=== PATIENT | female | born 1995 | race Caucasian/White ===

== ENCOUNTER 2017-05-24 01:11 | Emergency (ER) | payer OTHER ==
[~2017-05-24] VITALS: Ht 172.7 cm; Wt 83.9 kg
[~2017-05-24 01:11] MED LIST: NITR100C62 PO; PHEN100T82 PO
[2017-05-24 01:30] VITALS: BP 131/78
[2017-05-24] MEDS ORDERED: IBUP-1007 PO (02:17)
[2017-05-24] MEDS ORDERED: CYCL10TA2 PO (02:17)
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
[2017-05-24] MEDS ORDERED: IBUPROFEN 600 MG TABLET. PO ONE (02:30)
[2017-05-24] MEDS ORDERED: CYCLOBENZAPRINE 10 MG TABLET. PO ONE (02:30)
== END 2017-05-24 02:33 | disposition home or self-care (01) ==
LOC: ER 01:11
DX: S39.012A Strain of muscle, fascia and tendon of lower back, initial encounter (principal); V49.88XA Car occupant (driver) (passenger) injured in other specified transport accidents, initial encounter; Y93.89 Activity, other specified; Y99.8 Other external cause status; Y92.488 Other paved roadways as the place of occurrence of the external cause
CPT/HCPCS: 99283

== ENCOUNTER 2017-11-12 02:14 | Emergency (ER) | payer SELFPAY, OTHER ==
[2017-11-12 02:43] LABS: URINE HCG POC HCG NEGATIVE (Negative)
[2017-11-12] MEDS: ONDANSETRON ODT 4 MG TAB.RAPDIS. PO (03:20)
== END 2017-11-12 04:25 | disposition home or self-care (01) ==
LOC: ER 02:14
DX: R11.2 Nausea with vomiting, unspecified (principal)
CPT/HCPCS: 81025; 99283; Q0162

== ENCOUNTER 2017-12-02 00:53 | Emergency (ER) | payer OTHER | END 2017-12-02 02:04 | disposition home or self-care (01) | LOC: ER 00:53 | DX: H10.89 Other conjunctivitis (principal) | CPT/HCPCS: 99283 ==

== ENCOUNTER 2017-12-17 00:54 | Emergency (ER) | payer OTHER ==
[2017-12-17 02:58] LABS: URINE HCG POC HCG POSITIVE (Negative)
[2017-12-17 03:21] LABS: ADD MAN DIFF? NO
[2017-12-17 03:26] LABS: BASO % 0 % (0-3); EOS # 0.1 x10^3/uL (0.0-0.7); EOS % 2 % (0-3); HEMOGLOBIN 13.1 g/dL (12.0-15.5); LYMPH # 2.3 x10^3/uL (1.0-4.8); LYMPH % 30 % (24-48); MEAN CORPUSCULAR HEMOGLOBIN 30 pg (25-35); MEAN CORPUSCULAR HGB CONC 34 g/dL (31-37); MEAN CORPUSCULAR VOLUME 88 fL (79-100); MONO # 0.7 x10^3/uL (0.0-1.1); MONO % 9 % (0-9); NEUT # 4.6 x10^3uL (1.8-7.7); NEUT % 59 % (31-73); PLATELET COUNT 190 x10^3/uL (140-400); RED BLOOD COUNT 4.33 x10^6/uL (3.50-5.40); RED CELL DISTRIBUTION WIDTH 13.9 % (11.5-14.5); WHITE BLOOD COUNT 7.8 x10^3/uL (4.0-11.0)
[2017-12-17 03:28] LABS: BILIRUBIN,URINE NEGATIVE (NEG); CLARITY,URINE CLEAR; COLOR,URINE YELLOW; GLUCOSE,URINE NEGATIVE (NEG); NITRITE,URINE NEGATIVE (NEG); PH,URINE 6.5; PROTEIN,URINE NEGATIVE (NEG-TRACE)
[2017-12-17 03:46] LABS: ANION GAP 10 (6-14); BLOOD UREA NITROGEN 13 mg/dL (7-20); BUN/CREATININE RATIO 16 (6-20); CALCIUM 8.8 mg/dL (8.5-10.1); CARBON DIOXIDE 27 mmol/L (21-32); CHLORIDE 104 mmol/L (98-107); CREATININE 0.8 mg/dL (0.6-1.0); GFR 91.4; GLUCOSE 96 mg/dL (70-99); POTASSIUM 4.2 mmol/L (3.5-5.1); SODIUM 141 mmol/L (136-145)
[2017-12-17 03:53] LABS: ALBUMIN 3.6 g/dL (3.4-5.0); ALBUMIN/GLOBULIN RATIO 1.1 (1.0-1.7); ALK PHOS 102 U/L (46-116); ALT (SGPT) 26 U/L (14-59); AST (SGOT) 15 U/L (15-37); TOTAL BILIRUBIN 0.3 mg/dL (0.2-1.0); TOTAL PROTEIN 6.8 g/dL (6.4-8.2)
[2017-12-17 03:54] LABS: BACTERIA,URINE FEW /HPF (0-FEW); SQUAMOUS EPITHELIAL CELL,UR FEW /LPF
== END 2017-12-17 05:06 | disposition home or self-care (01) ==
LOC: ER 00:54
DX: O46.91 Antepartum hemorrhage, unspecified, first trimester (principal); Z3A.01 Less than 8 weeks gestation of pregnancy
CPT/HCPCS: 36415; 76801; 80053; 81001; 81025; 84702; 85025; 99285-25

== ENCOUNTER → 2018-06-11 | Outpatient (CLI) | payer OTHER ==
[2017-12-17 05:06] VITALS: BP 99/59
[~2018-06-11] MED LIST changes: +CYCL10TA2 PO; +IBUP-1007 PO; +ONDA4TAB12 PO; +POLY10DR LEFTEYE
--- NOTE | 2018-06-11 11:16 | EKG ---
[facility] [address] [place] [address] Test Date: 2018-06-11 Test Time: 11:12:32 Pat Name: AMNA HERNANDEZ Department: Room: Gender: F Training Program Manager: YURIDIA : 1995 Requested By: DANNY CUEVA Order Number: [id number] Reading MD: Mickey Ashraf MD Measurements Intervals [place] Rate: 93 P: 49 AK: 138 QRS: 53 QRSD: 88 T: 19 QT: 378 QTc: 473 Interpretive Statements SINUS RHYTHM Electronically Signed On 06-15-2018 8:32:58 CARDIAC EXERCISE SPECIALIST by Mickey Ashraf MD
== END | disposition home or self-care (01) ==
LOC: EKG 10:53
PROVIDERS: ATTEND Obstetrics & Gynecology
DX: Z34.03 Encounter for supervision of normal first pregnancy, third trimester (principal); Z3A.00 Weeks of gestation of pregnancy not specified
CPT/HCPCS: 93005

== ENCOUNTER 2018-08-05 20:58 | Emergency (ER) | payer OTHER ==
[~2018-08-05] VITALS: Ht 175.3 cm; Wt 103.0 kg
[2018-08-05 21:32] LABS: BILIRUBIN,URINE NEGATIVE (NEG); CLARITY,URINE CLEAR; COLOR,URINE YELLOW; NITRITE,URINE NEGATIVE (NEG); PH,URINE 6.5; PROTEIN,URINE NEGATIVE (NEG-TRACE)
[2018-08-05 21:36] LABS: RBC,URINE >40 /HPF (0-2); SQUAMOUS EPITHELIAL CELL,UR MOD /LPF
[2018-08-05 21:37] LABS: BACTERIA,URINE 0 /HPF (0-FEW)
[2018-08-05] MEDS ORDERED: IV NORMAL SALINE 1000ML BAG 1,000 ML IV ONE (21:45)
[2018-08-05] MEDS ORDERED: ONDANSETRON PF 4 MG/2 ML VIAL. IV ONE (21:45)
[2018-08-05] MEDS ORDERED: fentaNYL PF VIAL 100 MCG/2 ML VIAL IV ONE (21:45)
[2018-08-05 21:51] LABS: BASO % 0 % (0-3); EOS # 0.3 x10^3/uL (0.0-0.7); EOS % 3 % (0-3); HEMATOCRIT 37.4 % (36.0-47.0); HEMOGLOBIN 12.3 g/dL (12.0-15.5); LYMPH # 1.7 x10^3/uL (1.0-4.8); LYMPH % 18 % (24-48); MEAN CORPUSCULAR HEMOGLOBIN 28 pg (25-35); MEAN CORPUSCULAR HGB CONC 33 g/dL (31-37); MEAN CORPUSCULAR VOLUME 85 fL (79-100); MONO # 0.7 x10^3/uL (0.0-1.1); MONO % 7 % (0-9); NEUT # 6.9 x10^3uL (1.8-7.7); NEUT % 72 % (31-73); PLATELET COUNT 268 x10^3/uL (140-400); RED BLOOD COUNT 4.42 x10^6/uL (3.50-5.40); RED CELL DISTRIBUTION WIDTH 14.1 % (11.5-14.5); WHITE BLOOD COUNT 9.6 x10^3/uL (4.0-11.0)
[2018-08-05 21:58] LABS: CALCIUM 9.5 mg/dL (8.5-10.1); CREATININE 0.8 mg/dL (0.6-1.0); GFR 91.4
[2018-08-05 22:04] LABS: ALBUMIN 2.8 g/dL (3.4-5.0); ALBUMIN/GLOBULIN RATIO 0.7 (1.0-1.7); TOTAL BILIRUBIN 0.3 mg/dL (0.2-1.0); TOTAL PROTEIN 7.1 g/dL (6.4-8.2)
--- NOTE | 2018-08-05 22:55 | RAD ---
Examination: ABDOMEN LTD History: UPPER ABD PAIN, NAUSEA X 3 DAYS
VAG DELIVERY 07/30/18

APPEARS NORMAL Comparison/Correlation: None Findings: Ultrasound examination of the right upper quadrant was performed. Hepatic echotexture is normal. Gallbladder is unremarkable with no cholelithiasis. Liver length is 18.8 cm. Common bile duct measures up to 0.4 cm diameter. Right kidney is normal measuring 12.5 cm x 6.2 cm x 5.1 cm. Proximal pancreas is normal. Distal pancreas is obscured by bowel gas. Inferior vena cava is unremarkable. No right upper quadrant ascites. Portal venous flow normal. Impression: Normal right upper quadrant ultrasound exam. Electronically signed by: Jay Jeronimo MD (08/05/2018 10:50 PM) [facility]
[2018-08-05 23:30] VITALS: BP 109/62
[2018-08-05] MEDS ORDERED: PROCHLORPERAZINE 10 MG/2 ML VIAL. IV ONE (23:30)
[2018-08-06] MEDS ORDERED: HYDR-2761 PO (00:04)
--- NOTE | 2018-08-06 00:04 | PHYS DOC ---
Past Medical History Past Medical History: No Pertinent History Past Surgical History: No Surgical History Alcohol Use: None Drug Use: None Adult General Chief Complaint Chief Complaint: ABDOMINAL PAIN HPI HPI Patient is a 22 year old female who presents to the ER, accompanied by her mother with complaints of right upper quadrant and epigastric abdominal pain for the last 3 days with nausea. Pt denies any fever, vomiting, diarrhea, irregular bowel movements, dysuria, hematuria, or back pain. She was seen at [facility] last night and sent home with non-specific instructions. Pt states she had a vaginal delivery on 07/30/18 and denies any complications. She was seen by her OBgyn earlier today who told her that the pain is not likely due to child . Pt states that she has an ultrasound ordered here tomorrow but reports that the pain is a 7/10 on the pain scale currently and she wants a second opinion. Pt states that nothing makes the pain better or worse. Pt states she continues to have vaginal bleeding after vaginal delivery, denies any increased bleeding or clots. Review of Systems Review of Systems Constitutional: Denies fever or chills [] Eyes: Denies change in visual acuity, redness, or eye pain [] HENT: Denies nasal congestion or sore throat [] Respiratory: Denies cough or shortness of breath [] Cardiovascular: No additional information not addressed in HPI [] GI: See HPI : Denies dysuria or hematuria [] Musculoskeletal: Denies back pain Integument: Denies rash or skin lesions [] Neurologic: Denies headache, focal weakness or sensory changes [] Current Medications Current Medications Current Medications Medications (Trade) Dose Ordered Sig/[facility] Start Time Stop Time Status Last Admin Dose Admin Fentanyl Citrate (Fentanyl 2ml Vial) 50 mcg 1X ONCE 08/05/18 21:45 08/05/18 21:46 DC 08/05/18 21:57 50 MCG Ondansetron HCl (Zofran) 4 mg 1X ONCE 08/05/18 21:45 08/05/18 21:46 DC 08/05/18 21:57 4 MG Prochlorperazine Edisylate (Compazine) 10 mg 1X ONCE 08/05/18 23:30 08/05/18 23:36 DC 08/05/18 23:33 10 MG Sodium Chloride 1,000 ml @ 1,000 mls/hr 1X ONCE 08/05/18 21:45 08/05/18 22:44 DC 08/05/18 21:51 1,000 MLS/HR Allergies Allergies Allergies Coded Allergies Type Severity Reaction Last Updated Verified No Known Drug Allergies 09/25/13 No Physical Exam Physical Exam Constitutional: Well developed, well nourished, no acute distress, non-toxic appearance, obese. [] HENT: Normocephalic, atraumatic, bilateral external ears normal, oropharynx moist, no oral exudates, nose normal. [] Eyes: conjunctiva normal, no discharge. [] Neck: Normal range of motion, no stridor. [] Cardiovascular:Heart rate regular rhythm, no murmur [] Lungs & Thorax: Bilateral breath sounds clear to auscultation [] Abdomen: Bowel sounds normal, soft, RUQ and epigastric TTP, no masses, no pulsatile masses. [] Skin: Warm, dry, no erythema, no rash. [] Back: no CVA tenderness. [] Extremities: No cyanosis, ROM intact, no edema. [] Neurologic: Alert and oriented X 3, normal motor function, normal sensory function, no focal deficits noted. [] Psychologic: Affect normal, judgement normal, mood normal. [] Current Patient Data Vital Signs Vital Signs Date Time Temp Pulse Resp B/P (MAP) Pulse Ox O2 Delivery O2 Flow Rate FiO2 08/05/18 23:30 70 109/62 (78) 98 Room Air 08/05/18 21:57 18 08/05/18 21:00 98.6 98.6 Lab Values Laboratory Tests Test 08/05/18 21:05 08/05/18 21:45 Urine Collection Type Unknown Urine Color Yellow Urine Clarity Clear Urine pH 6.5 Urine Specific [place] 1.020 Urine Protein Negative mg/dL (NEG-TRACE) Urine Glucose (UA) Negative mg/dL (NEG) Urine Ketones (Stick) 15 mg/dL (NEG) Urine Blood Large (NEG) Urine Nitrite Negative (NEG) Urine Bilirubin Negative (NEG) Urine Urobilinogen Dipstick 1.0 mg/dL (0.2 mg/dL) Urine Leukocyte Esterase Moderate (NEG) Urine RBC >40 /HPF (0-2) Urine WBC 5-10 /HPF (0-4) Urine Squamous Epithelial Cells Mod /LPF Urine Bacteria 0 /HPF (0-FEW) Urine Mucus Marked /LPF White Blood Count 9.6 x10^3/uL (4.0-11.0) Red Blood Count 4.42 x10^6/uL (3.50-5.40) Hemoglobin 12.3 g/dL (12.0-15.5) Hematocrit 37.4 % (36.0-47.0) Mean Corpuscular Volume 85 fL (79-100) Mean Corpuscular Hemoglobin 28 pg (25-35) Mean Corpuscular Hemoglobin Concent 33 g/dL (31-37) Red Cell Distribution Width 14.1 % (11.5-14.5) Platelet Count 268 x10^3/uL (140-400) Neutrophils (%) (Auto) 72 % (31-73) Lymphocytes (%) (Auto) 18 % (24-48) L Monocytes (%) (Auto) 7 % (0-9) Eosinophils (%) (Auto) 3 % (0-3) Basophils (%) (Auto) 0 % (0-3) Neutrophils # (Auto) 6.9 x10^3uL (1.8-7.7) Lymphocytes # (Auto) 1.7 x10^3/uL (1.0-4.8) Monocytes # (Auto) 0.7 x10^3/uL (0.0-1.1) Eosinophils # (Auto) 0.3 x10^3/uL (0.0-0.7) Basophils # (Auto) 0.0 x10^3/uL (0.0-0.2) Sodium Level 142 mmol/L (136-145) Potassium Level 4.0 mmol/L (3.5-5.1) Chloride Level 104 mmol/L (98-107) Carbon Dioxide Level 27 mmol/L (21-32) Anion Gap 11 (6-14) Blood Urea Nitrogen 13 mg/dL (7-20) Creatinine 0.8 mg/dL (0.6-1.0) Estimated GFR (Cockcroft-Gault) 91.4 BUN/Creatinine Ratio 16 (6-20) Glucose Level 91 mg/dL (70-99) Calcium Level 9.5 mg/dL (8.5-10.1) Total Bilirubin 0.3 mg/dL (0.2-1.0) Aspartate Amino Transferase (AST) 19 U/L (15-37) Alanine Aminotransferase (ALT) 30 U/L (14-59) Alkaline Phosphatase 156 U/L (46-116) H Total Protein 7.1 g/dL (6.4-8.2) Albumin 2.8 g/dL (3.4-5.0) L Albumin/Globulin Ratio 0.7 (1.0-1.7) L Lipase 58 U/L (73-393) L Laboratory Tests 08/05/18 21:45 Laboratory Tests 08/05/18 21:45 Microbiology 08/05/18 Urine Culture - Final, Complete 08/05/18 Urine Culture Result 1 (GIANCARLO) - Final, Complete EKG EKG [] Radiology/Procedures Radiology/Procedures PROCEDURE: ABDOMEN LTD Examination: ABDOMEN LTD History: UPPER ABD PAIN, NAUSEA X 3 DAYS
VAG DELIVERY 07/30/18

APPEARS NORMAL Comparison/Correlation: None Findings: Ultrasound examination of the right upper quadrant was performed. Hepatic echotexture is normal. Gallbladder is unremarkable with no cholelithiasis. Liver length is 18.8 cm. Common bile duct measures up to 0.4 cm diameter. Right kidney is normal measuring 12.5 cm x 6.2 cm x 5.1 cm. Proximal pancreas is normal. Distal pancreas is obscured by bowel gas. Inferior vena cava is unremarkable. No right upper quadrant ascites. Portal venous flow normal. Impression: Normal right upper quadrant ultrasound exam. [] Course & Med Decision Making Course & Med Decision Making Pertinent Labs and Imaging studies reviewed. (See chart for details) Dx: nonspecific upper abdominal pain DDx: cholecystitis, gall stones, appendicitis US of RUQ was normal, CBC not concerning, Alk phos 156, lipase 58, BMP normal, UA positive for blood, 5-10 WBC no bacteria, pt asymptomatic no UTI Pt was given 1L NS, 4 mg zofran, 50 mcg of fentanyl, and 10 mg of compazine in the ER reported feeling better after medications. Prescription was written for hydrocodone #10. Follow up with primary care doctor , recommend bland foods and advance as tolerated. Return to ER if symptoms worsen. Pt verbalized an understanding of d/c instructions, prescription, follow up, and return to ED instructions and was in agreement with POC. [] Dragon Disclaimer Dragon Disclaimer This electronic medical record was generated, in whole or in part, using a voice recognition dictation system. Departure Departure Impression: Primary Impression: Upper abdominal pain, unspecified Disposition: HOME, SELF-CARE Condition: STABLE Referrals: NO PCP (PCP) Patient Instructions: Abdominal Pain (Nonspecific) Additional Instructions: Fill the prescription and use as directed. Follow up with your primary care doctor if symptoms persist, return to the ER if symptoms worsen. Scripts Hydrocodone Bit/Acetaminophen (HYDROCODONE-APAP 5-325 ) 1 Tab Tablet 1 TAB PO PRN Q6HRS PRN for PAIN for 3 Days, #10 TAB 0 Refills Prov: KERI HATCH HAM STRIPPER 08/06/18 KERI HATCH HAM STRIPPER Aug 06, 2018 00:04
== END 2018-08-06 00:50 | disposition home or self-care (01) ==
LOC: ER 20:58
DX: R10.11 Right upper quadrant pain (principal); R10.13 Epigastric pain
CPT/HCPCS: 36415; 76705; 80053; 81001; 83690; 85025; 87086; 96374; 96375; 99284; J0780; J2405; J3010; J7030

== ENCOUNTER 2019-01-16 08:33 | Emergency (ER) | payer OTHER ==
[~2019-01-16] VITALS: Ht 172.7 cm; Wt 97.5 kg
[~2019-01-16 08:33] MED LIST changes: +HYDR-2761 PO
[2019-01-16] MEDS ORDERED: MECLIZINE HCL 12.5 MG TABLET. PO ONE (09:00)
[2019-01-16] MEDS ORDERED: IV NORMAL SALINE 1000ML BAG 1,000 ML IV ONE (09:00)
[2019-01-16 09:01] LABS: BILIRUBIN,URINE NEGATIVE (NEG); CLARITY,URINE CLEAR; COLOR,URINE YELLOW; NITRITE,URINE NEGATIVE (NEG); PROTEIN,URINE NEGATIVE (NEG-TRACE); UROBILINOGEN,URINE 0.2 mg/dL (0.2 mg/dL)
--- NOTE | 2019-01-16 09:05 | PHYS DOC ---
Past Medical History Past Medical History: Depression Past Surgical History: No Surgical History Alcohol Use: None Drug Use: None Adult General Chief Complaint Chief Complaint: MULTIPLE COMPLAINTS HPI HPI Patient is a 23 year old female who presents to the ER with complaints of feeling light headed, dizzy, and frequent headaches for the last 2 weeks. Pt states she was seen at [facility] a week ago and was diagnosed with a UTI. She felt better for a few days but noticed the symptoms returned yesterday. 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 She denies any fever, cough, shortness of breath, chest pain, abdominal pain, nausea, vomiting, or diarrhea. She states that the dizziness feels like the room is spinning and it gets worse if she moves her eyes. She currently denies any pain at this time. She denies any tinnitus or decreased hearing. Review of Systems Review of Systems Constitutional: Denies fever or chills [] Eyes: Denies redness, or eye pain; reports blurred vision with dizzy spells HENT: Denies nasal congestion or sore throat [] Respiratory: Denies cough or shortness of breath [] Cardiovascular: No additional information not addressed in HPI [] GI: Denies abdominal pain, vomiting, or diarrhea; reports nausea with sx : Denies dysuria or hematuria [] Musculoskeletal: Denies back pain or joint pain [] Integument: Denies rash or skin lesions [] Neurologic: see HPI, reports intermittent headaches bilaterally in her temples. Complete systems were reviewed and found to be within normal limits, except as documented in this note. Current Medications Current Medications Current Medications Medications (Trade) Dose Ordered Sig/[place] Start Time Stop Time Status Last Admin Dose Admin Ceftriaxone Sodium (Rocephin) 1 gm 1X ONCE 01/16/19 09:30 01/16/19 09:31 DC 01/16/19 09:49 1 GM Meclizine HCl (Antivert) 25 mg 1X ONCE 01/16/19 09:00 01/16/19 09:01 DC 01/16/19 09:08 25 MG Sodium Chloride 1,000 ml @ 1,000 mls/hr 1X ONCE 01/16/19 09:00 01/16/19 09:59 DC 01/16/19 09:05 1,000 MLS/HR Allergies Allergies Allergies Coded Allergies Type Severity Reaction Last Updated Verified No Known Drug Allergies 01/16/19 No Physical Exam Physical Exam Constitutional: Well developed, well nourished, no acute distress, non-toxic appearance. [] HENT: Normocephalic, atraumatic, bilateral external ears normal, bilateral TMs normal, oropharynx moist, no oral exudates, nose normal. [] Eyes: PERRLA, EOMI, conjunctiva normal, no discharge, no nystagmus. [] Neck: Normal range of motion, no tenderness, supple, no stridor. [] Cardiovascular:Heart rate regular rhythm, no murmur [] Lungs & Thorax: Bilateral breath sounds clear to auscultation, unlabored[] Abdomen: soft, no tenderness, no masses, no pulsatile masses. [] Skin: Warm, dry, no erythema, no rash. [] Extremities: No cyanosis, no clubbing, ROM intact, no edema. [] Neurologic: Alert and oriented X 3, normal motor function, normal sensory function, no focal deficits noted. [] Psychologic: Affect normal, judgement normal, mood normal. [] Current Patient Data Vital Signs Vital Signs Date Time Temp Pulse Resp B/P (MAP) Pulse Ox O2 Delivery O2 Flow Rate FiO2 01/16/19 09:53 75 18 110/79 (89) 99 Room Air 01/16/19 08:42 97.7 97.7 Lab Values Laboratory Tests Test 01/16/19 08:54 01/16/19 08:55 01/16/19 09:07 POC Urine HCG, Qualitative Hcg negative (Negative) Urine Collection Type Unknown Urine Color Yellow Urine Clarity Clear Urine pH 6.0 Urine Specific [place] >=1.030 Urine Protein Negative mg/dL (NEG-TRACE) Urine Glucose (UA) Negative mg/dL (NEG) Urine Ketones (Stick) Negative mg/dL (NEG) Urine Blood Negative (NEG) Urine Nitrite Negative (NEG) Urine Bilirubin Negative (NEG) Urine Urobilinogen Dipstick 0.2 mg/dL (0.2 mg/dL) Urine Leukocyte Esterase Moderate (NEG) Urine RBC 1-2 /HPF (0-2) Urine WBC 20-40 /HPF (0-4) Urine Squamous Epithelial Cells Many /LPF Urine Transitional Epithelial Cells Few /LPF Urine Bacteria Moderate /HPF (0-FEW) Urine Mucus Mod /LPF White Blood Count 5.8 x10^3/uL (4.0-11.0) Red Blood Count 4.76 x10^6/uL (3.50-5.40) Hemoglobin 13.2 g/dL (12.0-15.5) Hematocrit 39.5 % (36.0-47.0) Mean Corpuscular Volume 83 fL (79-100) Mean Corpuscular Hemoglobin 28 pg (25-35) Mean Corpuscular Hemoglobin Concent 33 g/dL (31-37) Red Cell Distribution Width 15.5 % (11.5-14.5) H Platelet Count 196 x10^3/uL (140-400) Neutrophils (%) (Auto) 58 % (31-73) Lymphocytes (%) (Auto) 29 % (24-48) Monocytes (%) (Auto) 10 % (0-9) H Eosinophils (%) (Auto) 3 % (0-3) Basophils (%) (Auto) 0 % (0-3) Neutrophils # (Auto) 3.4 x10^3uL (1.8-7.7) Lymphocytes # (Auto) 1.7 x10^3/uL (1.0-4.8) Monocytes # (Auto) 0.6 x10^3/uL (0.0-1.1) Eosinophils # (Auto) 0.2 x10^3/uL (0.0-0.7) Basophils # (Auto) 0.0 x10^3/uL (0.0-0.2) Sodium Level 139 mmol/L (136-145) Potassium Level 3.8 mmol/L (3.5-5.1) Chloride Level 105 mmol/L (98-107) Carbon Dioxide Level 27 mmol/L (21-32) Anion Gap 7 (6-14) Blood Urea Nitrogen 14 mg/dL (7-20) Creatinine 0.8 mg/dL (0.6-1.0) Estimated GFR (Cockcroft-Gault) 90.5 BUN/Creatinine Ratio 18 (6-20) Glucose Level 94 mg/dL (70-99) Calcium Level 8.9 mg/dL (8.5-10.1) Total Bilirubin 0.4 mg/dL (0.2-1.0) Aspartate Amino Transferase (AST) 15 U/L (15-37) Alanine Aminotransferase (ALT) 21 U/L (14-59) Alkaline Phosphatase 102 U/L (46-116) Total Protein 6.7 g/dL (6.4-8.2) Albumin 3.6 g/dL (3.4-5.0) Albumin/Globulin Ratio 1.2 (1.0-1.7) Laboratory Tests 01/16/19 09:07 Laboratory Tests 01/16/19 09:07 EKG EKG 0911- NSR rate 63, No STEMI read by Dr. Levin[] Radiology/Procedures Radiology/Procedures [] Course & Med Decision Making Course & Med Decision Making Pertinent Labs and Imaging studies reviewed. (See chart for details) dx: vertigo, UTI CBC unremarkable, CMP unremarkable, EKG NSR, UA 20-40 WBC, moderate bacteria. Pt was given 25 mg of PO meclizine and 1L of NS in the ER, reports feeling better after medications. Orthostatic BP improved following 1L of NS. 1 gm of IV Rocephin was given. VSS. Prescriptions written for meclizine prn and keflex 500 QID x7 days. Follow up with PCP or Dr. Islas next week. Patient verbalized an understanding of home care, medications, follow-up, and return to ED instructions and was in agreement with the plan of care. [] Dragon Disclaimer Dragon Disclaimer This electronic medical record was generated, in whole or in part, using a voice recognition dictation system. Departure Departure Impression: Primary Impression: UTI (urinary tract infection) Additional Impression: Vertigo Disposition: 01 HOME, SELF-CARE Condition: STABLE Referrals: NO PCP (PCP) WILL ISLAS MD Patient Instructions: Urinary Tract Infection, [id number], Vertigo, Easy-to- Read Additional Instructions: Fill prescriptions and use as directed. Change positions slowly. Follow up with ENT or your primary care doctor next week. Return to the ER if symptoms worsen. Scripts Cephalexin (KEFLEX) 500 Mg Capsule 500 MG PO QID for 7 Days, #28 CAP 0 Refills Prov: KERI HATCH APRN 01/16/19 Meclizine Hcl (MECLIZINE HCL) 25 Mg Tablet 1 TAB PO PRN TID PRN for DIZZINESS for 10 Days, #30 TAB 0 Refills Prov: KERI HATCH APRN 01/16/19 Problem Qualifiers Primary Impression: UTI (urinary tract infection) Urinary tract infection type: site unspecified Hematuria presence: without hematuria Qualified Codes: N39.0 - Urinary tract infection, site not specified KERI HATCH VP & GENERAL COUNSEL Jan 16, 2019 09:05
[2019-01-16 09:15] LABS: BASO % 0 % (0-3); EOS # 0.2 x10^3/uL (0.0-0.7); EOS % 3 % (0-3); HEMATOCRIT 39.5 % (36.0-47.0); HEMOGLOBIN 13.2 g/dL (12.0-15.5); LYMPH # 1.7 x10^3/uL (1.0-4.8); LYMPH % 29 % (24-48); MEAN CORPUSCULAR HEMOGLOBIN 28 pg (25-35); MEAN CORPUSCULAR HGB CONC 33 g/dL (31-37); MEAN CORPUSCULAR VOLUME 83 fL (79-100); MONO # 0.6 x10^3/uL (0.0-1.1); MONO % 10 % (0-9); NEUT # 3.4 x10^3uL (1.8-7.7); NEUT % 58 % (31-73); PLATELET COUNT 196 x10^3/uL (140-400); RED BLOOD COUNT 4.76 x10^6/uL (3.50-5.40); RED CELL DISTRIBUTION WIDTH 15.5 % (11.5-14.5); WHITE BLOOD COUNT 5.8 x10^3/uL (4.0-11.0)
[2019-01-16 09:18] LABS: SQUAMOUS EPITHELIAL CELL,UR MANY /LPF
[2019-01-16 09:19] LABS: BACTERIA,URINE MODERATE /HPF (0-FEW)
[2019-01-16 09:20] LABS: WBC,URINE 20-40 /HPF (0-4)
[2019-01-16 09:24] LABS: CALCIUM 8.9 mg/dL (8.5-10.1); CREATININE 0.8 mg/dL (0.6-1.0); GFR 90.5; POTASSIUM 3.8 mmol/L (3.5-5.1)
[2019-01-16 09:30] LABS: ALBUMIN 3.6 g/dL (3.4-5.0); ALBUMIN/GLOBULIN RATIO 1.2 (1.0-1.7); TOTAL BILIRUBIN 0.4 mg/dL (0.2-1.0); TOTAL PROTEIN 6.7 g/dL (6.4-8.2)
[2019-01-16] MEDS ORDERED: cefTRIAXone IV Push 1 GM VIAL. IVP ONE (09:30)
[2019-01-16 09:53] VITALS: BP 110/79
[2019-01-16] MEDS ORDERED: MECL25TA3 PO (10:01)
[2019-01-16] MEDS ORDERED: CEPH-264 PO (10:01)
--- NOTE | 2019-01-18 07:49 | EKG ---
[facility] [address] [place] [address] Test Date: 2019-01-16 Test Time: 09:11:57 Pat Name: AMNA HERNANDEZ Department: Room: Gender: F Detective Lieutenant: : 1995 Requested By: KERI HATCH Order Number: [id number] Reading MD: Measurements Intervals [place] Rate: 63 P: 52 [place]: 170 QRS: 43 QRSD: 90 T: 34 QT: 418 QTc: 431 Interpretive Statements SINUS RHYTHM NO SPECIFIC ECG ABNORMALITIES RI6.01 No previous ECG available for comparison
== END 2019-01-16 10:06 | disposition home or self-care (01) ==
LOC: ER 08:33
DX: N39.0 Urinary tract infection, site not specified (principal); R42 Dizziness and giddiness; F32.9 Major depressive disorder, single episode, unspecified
CPT/HCPCS: 36415; 80053; 81001; 81025; 85025; 87086; 93005; 96361; 96374; 99285; J0696; J7030; J8597

== ENCOUNTER 2019-01-18 09:04 | Emergency (ER) | payer OTHER ==
[~2019-01-18] VITALS: Ht 172.7 cm; Wt 97.5 kg
[~2019-01-18 09:04] MED LIST changes: +CEPH-264 PO; +MECL25TA3 PO
--- NOTE | 2019-01-18 09:39 | PHYS DOC ---
Past Medical History Past Medical History: Depression Past Surgical History: No Surgical History Alcohol Use: None Drug Use: None Adult General Chief Complaint Chief Complaint: DIZZY/LIGHT HEADED [facility] HPI Patient is a 23 year old female who presents with complaining of dizziness and headache. Patient complaining of intermittent episodes of dizziness and constant headache for the last 2 weeks that getting worse with change of position. Patient was seen at [facility] and treated with UTI with partial improvement of her condition. Patient was seen in this emergency room days ago with the same complaint and had unremarkable EKG and labs except for TIA. Patient got her medication last night and started to take her medicine this morning but he states her dizziness is not getting better. Patient denies chest pain, focal neuro deficit, nausea and vomiting, fever and chills, , using drugs. Review of Systems Review of Systems Constitutional: Denies fever or chills [] Eyes: Denies change in visual acuity, redness, or eye pain [] HENT: Denies nasal congestion or sore throat [] Respiratory: Denies cough or shortness of breath [] Cardiovascular: No additional information not addressed in HPI [] GI: Denies abdominal pain, nausea, vomiting, bloody stools or diarrhea [] : Denies dysuria or hematuria [] Musculoskeletal: Denies back pain or joint pain [] Integument: Denies rash or skin lesions [] Neurologic: Reports dizziness and headache, denies focal weakness or sensory changes [] Endocrine: Denies polyuria or polydipsia [] All other systems were reviewed and found to be within normal limits, except as documented in this note. Allergies Allergies Allergies Coded Allergies Type Severity Reaction Last Updated Verified No Known Drug Allergies 01/16/19 No Physical Exam Physical Exam Constitutional: Well developed, well nourished, no acute distress, non-toxic appearance. [] HENT: Normocephalic, atraumatic, oropharynx moist, no oral exudates, nose normal. [] Eyes: PERRLA, EOMI, conjunctiva normal, no discharge. [] Neck: Normal range of motion, no tenderness, supple, no stridor. [] Cardiovascular:Heart rate regular rhythm, no murmur [] Lungs & Thorax: Bilateral breath sounds clear to auscultation [] Abdomen: Bowel sounds normal, soft, no tenderness, no masses, no pulsatile masses. [] Skin: Warm, dry, no erythema, no rash. [] Back: No tenderness, no CVA tenderness. [] Extremities: No tenderness, no cyanosis, no clubbing, ROM intact, no edema. [] Neurologic: Alert and oriented X 3, normal motor function, normal sensory function, no focal deficits noted. [] Psychologic: Affect normal, judgement normal, mood normal. [] Current Patient Data Vital Signs Vital Signs Date Time Temp Pulse Resp B/P (MAP) Pulse Ox O2 Delivery O2 Flow Rate FiO2 01/18/19 09:18 98.1 76 18 130/74 (92) 99 Room Air 98.1 EKG EKG [] Radiology/Procedures Radiology/Procedures [facility] [address] [place] [address] IMAGING REPORT Signed PATIENT: AMNA HERNANDEZ ACCOUNT: [id number] : 1995 LOCATION: ER AGE: 23 SEX: F EXAM STATUS: REG ER ORD. PHYSICIAN: DAVID AARON MD REASON: headache and dizziness PROCEDURE: CT HEAD WO CONTRAST CT scan of the head without contrast 01/18/2019 Clinical History: Headaches and dizziness. Technique: Unenhanced, contiguous, 5 mm axial sections were obtained through the head. One or more of the following individualized dose reduction techniques were utilized for this study: 1. Automated exposure control. 2. Adjustment of the mA and/or kV according to patient size. 3. Use of iterative reconstruction technique. Findings: The ventricles and sulci are within normal limits in size and configuration. No focal area of abnormal attenuation is seen involving the brain parenchyma. No extra-axial fluid collection is seen. No skull fracture is seen. Impression: Negative study. Electronically signed by: Jamie Burch MD (01/18/2019 10:04 AM) [facility] DICTATED and SIGNED BY: JAMIE BURCH MD DATE: 01/18/19 1008 Course & Med Decision Making Course & Med Decision Making Pertinent Imaging studies reviewed. (See chart for details) Evaluation of patient in ER showed 23-year-old female patient with complaining of intermittent episodes of dizziness for 2 weeks and to another emergency room visit with diagnosis of UTI. Patient started antibiotic this morning. Patient had unremarkable physical exam and CT of head. Patient was advised to continue her home medication and increase fluid intake. At the time of discharge patient asking for 2 days off of work. Dragon Disclaimer Dragon Disclaimer This electronic medical record was generated, in whole or in part, using a voice recognition dictation system. Departure Departure Impression: Primary Impression: UTI (urinary tract infection) Additional Impressions: Vertigo History of depression Disposition: HOME, SELF-CARE (at 1017) Condition: STABLE Referrals: NO PCP (PCP) Patient Instructions: Dizziness, Urinary Tract Infection Additional Instructions: Drink plenty of liquids Follow-up with your primary care physician in 3-5 days Return to ER if not getting better Continue current antibiotic and home medication Problem Qualifiers Primary Impression: UTI (urinary tract infection) Urinary tract infection type: site unspecified Hematuria presence: without hematuria Qualified Codes: N39.0 - Urinary tract infection, site not specified DAVID AARON MD Jan 18, 2019 09:39
--- NOTE | 2019-01-18 10:07 | RAD ---
CT scan of the head without contrast 01/18/2019 Clinical History: Headaches and dizziness. Technique: Unenhanced, contiguous, 5 mm axial sections were obtained through the head. One or more of the following individualized dose reduction techniques were utilized for this study: 1. Automated exposure control. 2. Adjustment of the mA and/or kV according to patient size. 3. Use of iterative reconstruction technique. Findings: The ventricles and sulci are within normal limits in size and configuration. No focal area of abnormal attenuation is seen involving the brain parenchyma. No extra-axial fluid collection is seen. No skull fracture is seen. Impression: Negative study. Electronically signed by: Jamie Burch MD (01/18/2019 10:04 AM) [facility]
[2019-01-18 10:26] VITALS: BP 116/68
== END 2019-01-18 10:40 | disposition home or self-care (01) ==
LOC: ER 09:04
DX: N39.0 Urinary tract infection, site not specified (principal); R42 Dizziness and giddiness; R51 Headache; F32.9 Major depressive disorder, single episode, unspecified
CPT/HCPCS: 70450; 99284